=== PATIENT | male | born 1990 | race Caucasian/White ===

== ENCOUNTER 2020-04-15 13:53 | Emergency (ER) | payer BC ==
[2020-04-15] MEDS ORDERED: Ketorolac 60 MG/2 ML SDV IM ONE (14:50)
[2020-04-15] MEDS ORDERED: Orphenadrine 60 MG/2 ML Inj IM ONE (14:50)
--- NOTE | 2020-04-15 14:55 | EDM.PDOC ---
ED HPI GENERAL MEDICAL PROBLEM - General Chief Complaint: Back Pain or Injury Stated Complaint: MUSCULAR BACK PAIN Time Seen by Provider: 04/15/20 14:50 Source of Information: Reports: Patient History Limitations: Reports: No Limitations - History of Present Illness INITIAL COMMENTS - FREE TEXT/NARRATIVE: Patient presents to ER with complaints of left lower back pain. 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 States "put him to his knees". He laid on the ground for a couple of hours after this as hurt to stand or sit, not getting much relief. Took ibuprofen for the pain. He denies any previous fractures or disc issues with his back. No radiation of the pain to his leg. No weakness noted. States "feels like bad spasms". Cannot find a position of comfort. 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 Denies: Leg Pain Skin: Reports: No Symptoms Neurological: Reports: Gait Disturbance (due to pain) ED EXAM,LOWER BACK PAIN/INJURY - Physical Exam Exam: See Below Exam Limited By: No Limitations General Appearance: Alert, WD/WN, Mild Distress Head: Normocephalic Neck: Normal Inspection, Supple, Non-Tender Respiratory/Chest: No Respiratory Distress, Lungs Clear, Normal Breath Sounds Cardiovascular: Regular Rate, Rhythm GI/Abdominal: Normal Bowel Sounds, Soft, Non-Tender Back Exam: Normal Inspection, Decreased Range of Motion, Muscle Spasm (left lower paraspinal region, SI region tender with palpation), Paraspinal Tenderness Extremities: Normal Inspection, No Pedal Edema Neurological: Alert, Normal Dorsiflexion, Normal Plantar Flexion, Normal Reflexes, No Motor/Sensory Deficits Skin Exam: Warm, Dry Course - Vital Signs Last Recorded V/S: Last Vital Signs Temp 99.0 F 04/15/20 15:00 Pulse 68 04/15/20 15:00 Resp 18 04/15/20 15:00 BP 110/35 L 04/15/20 15:00 Pulse Ox 96 04/15/20 15:00 - Orders/Labs/Meds Orders: Active Orders 24 hr Category Date Time Status Cyclobenzaprine [Take Home: Cyclobenzaprine 10 MG, 4 Med 04/15/20 15:34 Once Tab Pack] 1 packet PO ONETIME ONE Ketorolac [Take Home: Ketorolac 10 MG, 4 Tab Pack] Med 04/15/20 15:34 Once 2 packet PO ONETIME ONE Meds: Medications Discontinued Medications Generic Name Dose Route Start Last Admin Trade Name Viri PRN Reason Stop Dose Admin Ketorolac Tromethamine 60 mg 04/15/20 14:50 04/15/20 15:05 Toradol IM 04/15/20 14:51 60 mg ONETIME ONE Administration Orphenadrine Citrate 60 mg 04/15/20 14:50 04/15/20 15:09 Norflex IM 04/15/20 14:51 60 mg ONETIME ONE Administration - Re-Assessments/Exams Free Text/Narrative Re-Assessment/Exam: 04/15/20 15:34 Patient does feel he is starting to get some relief. Able to walk in to the bathroom per self. Departure - Departure Time of Disposition: 15:35 Disposition: Home, Self-Care 01 Condition: Fair Clinical Impression: Spasm of back muscles - Discharge Information *PRESCRIPTION DRUG MONITORING PROGRAM REVIEWED*: No *COPY OF PRESCRIPTION DRUG MONITORING REPORT IN PATIENT DARELL: No Instructions: Muscle Cramps and Spasms, [id number] Forms: ED Department Discharge Additional Instructions: 1. Rest 2. Ice to back today, may switch to heat tomorrow 3. Toradol 10 mg every 6 hours as needed for pain/inflammation 4. Flexeril 10 mg every 8 hours as needed for muscle spasms 5. Follow up with primary care provider for persisting pain, may need to consider physical therapy or imaging if needed. Sepsis Event Note (ED) - Focused Exam Vital Signs: Vital Signs Temp Pulse Resp BP Pulse Ox 04/15/20 15:00 99.0 F 68 18 110/35 L 96 - My Orders Last 24 Hours: My Active Orders 04/15/20 15:34 Cyclobenzaprine [Take Home: Cyclobenzaprine 10 MG, 4 Tab Pack] 1 packet PO ONETIME ONE Ketorolac [Take Home: Ketorolac 10 MG, 4 Tab Pack] 2 packet PO ONETIME ONE - Assessment/Plan Last 24 Hours: My Active Orders 04/15/20 15:34 Cyclobenzaprine [Take Home: Cyclobenzaprine 10 MG, 4 Tab Pack] 1 packet PO ONETIME ONE Ketorolac [Take Home: Ketorolac 10 MG, 4 Tab Pack] 2 packet PO ONETIME ONE
[2020-04-15] MEDS ORDERED: Take Home: Cyclobenzaprine 10 MG Tab, 4 Tab Pack PO ONE (15:34)
[2020-04-15] MEDS ORDERED: Take Home: Ketorolac 10 MG Tab, 4 Tab Pack PO ONE (15:34)
[2020-04-15] MEDS ORDERED: Take Home: Ketorolac 10 MG Tab, 4 Tab Pack ONE (16:16)
== END 2020-04-15 16:10 | disposition home or self-care (01) ==
LOC: VM.ED 13:53
DX: M62.830 Muscle spasm of back (principal)
CPT/HCPCS: 96372; 99283; A9270; J1885; J2360